=== PATIENT | male | born 1950 | race Caucasian/White ===

== ENCOUNTER 2017-11-21 09:46 | Inpatient (IN) ==
[2017-11-21] MEDS ORDERED: Chlorhexidine Gluconate 2% 1 Pack (2 Cloths) TOPICAL SCH (10:15)
[2017-11-21] MEDS ORDERED: Metoprolol Tartrate 25 MG Tablet PO SCH (10:15)
[2017-11-21] MEDS ORDERED: Sodium Chlor 0.9% Inj 73.07 ML, Ropivacaine 0.5% PF Inj 24.63 ML, Ketorolac Inj 30 MG, ... P-ARTICULR SCH ×5 (10:30)
[2017-11-21] MEDS ORDERED: Chlorhexidine 4% Topical 120 APPLIC/120 ML Bottle TOPICAL SCH (10:30)
[2017-11-21] MEDS ORDERED: Sodium Chlor 0.9% Inj 500 ML IV.SIG SCH (11:00)
[2017-11-21] MEDS ORDERED: Vancomycin Inj 1,000 MG in Sodium Chlor 0.9% Inj 250 ML IV.SIG SCH (11:00)
[2017-11-21] MEDS ORDERED: Bupivacaine PF 0.5% Inj 30 ML Vial ONE (11:37)
[2017-11-21] MEDS ORDERED: Neostigmine Inj 5 MG/5 ML Syringe IV.PUSH ONE (12:00)
[2017-11-21] MEDS ORDERED: Lidocaine PF 1% Inj 5 ML Syringe INFILTRATN ONE (12:00)
[2017-11-21] MEDS ORDERED: Phenylephrine/NS 1000 MCG/10ML Syringe IV.PUSH ONE (12:00)
[2017-11-21] MEDS ORDERED: Glycopyrrolate Inj 1 MG/5 ML Syringe IV.PUSH ONE (12:00)
[2017-11-21] MEDS ORDERED: ALPRAZolam 0.5 MG Tablet PO PRN (14:54)
[2017-11-21] MEDS ORDERED: Morphine Inj 4 MG/ML Vial IV.PUSH PRN (14:57)
[2017-11-21] MEDS ORDERED: Post-op Orders (for Pharmacy) OTHER STA (14:57)
[2017-11-21] MEDS ORDERED: Bisacodyl 10 MG Supp RECTAL PRN (14:57)
--- NOTE | 2017-11-21 15:03 | P.BOP ---
- Preoperative Diagnosis (1) Tricompartment osteoarthritis of right knee - Postoperative Diagnosis (1) Tricompartment osteoarthritis of right knee Date of procedure: 11/21/17 Procedure: R TKR Anesthesia: GETA, regional, local Surgeon: Aime Keith MD Environmental Epidemiologist: Alem Patricia Estimated blood loss (mL): 25 Tourniquet time (min): 57 Pathology: none sent Condition: stable Disposition: PACU
--- NOTE | 2017-11-21 15:05 | P.DCO ---
- Physical Therapy Physical Therapy: Gait training, Transfer training, bed to chair Knee: Total knee, Protocol: Right, Full weight bearing Canvas Knee Splint: When in bed with 2 pillows between thighs Right Lower Extremity Weight Bearing: Weight bearing as tolerated Left Lower Extremity Weight Bearing: Weight bearing as tolerated - Nursing RN: 3 days/week x 2 weeks Nursing: Dressing changes (clean with alcohol and apply dry sterile dressing ) Additional instructions: aspirin 81 mg bid x 4 weeks - Certification Need for Home Health services: I have seen patient Alex Lopez on 11/21/17. My clinical findings support the need for the requested home health care services because: Need for Home Health Services: Deconditioned with increased weakness Homebound Certification: I certify that my clinical findings support that this patient is homebound because: Homebound Certification: Unsteady gait/balance
[2017-11-21] MEDS ORDERED: Dextrose 50% in Water 50 ML Vial IV.PUSH PRN (15:13)
[2017-11-21] MEDS ORDERED: fentaNYL Citrate Inj 100 MCG/2 ML Ampul ONE (15:17)
--- NOTE | 2017-11-21 15:51 | P.CONIM ---
History of Present Illness Consult date: 11/21/17 Reason for Consult: Medical management Primary Care Provider: UNKNOWN History of Present Illness: The patient is a 67-year-old male with past medical history of CAD, CVA and diabetes who is presenting to the hospital for elective right knee replacement. The patient says he had arthritis ever since his working days and finally required knee surgery. He says at home he has been taking Tylenol with arthritis medication. He has been ambulating without a cane or a walker. He is status post total knee replacement on 11/21/2017. He tolerated the procedure well. He was seen in the PACU. He has endorsed some constipation recently. He denied any dysuria or fevers. He says he has not eaten all day. Discussed with nurse at the bedside. Review of Systems All other systems reviewed negative except as stated in HPI PMFSH - History History Provided By: Patient - Medical History Medical History: Medical History (Last Updated 11/21/17 @ 15:46 by Maximiliano Wilkes DO) Weems's palsy Brain bleed CVA (cerebral vascular accident) Heart murmur Arthritis Coronary artery disease Diabetes Family history of brain aneurysm Full dentures Heartburn High cholesterol Hypertension Joint pain Neck pain Panic attack Wears glasses - Surgical History Surgical History: Surgical History (Last Reviewed 11/21/17 @ 10:54 by Vanessa Avendano) History of removal of cyst History of tonsillectomy Hx of CABG - Family History Family History: Family History (Last Updated 11/21/17 @ 15:44 by Maximiliano Wilkes DO) Other CAD (coronary artery disease) - Tobacco History Second Hand Smoke Exposure: No Tobacco Use In Past 30 Days: No Smoking Status: Former smoker (He quit 10 years ago) - Alcohol History How Often Do You Have a Drink Containing Alcohol: Never - Substance Use History Substance History: No History of Abuse - Travel History Recent Travel in the [place] Within the Last 8 Weeks: No Recent Travel Out of the Country Within the Last 8 Weeks: No Medications and Allergies Active Medications: Active Medications Hydrocodone Bitart/Acetaminophen ([place] 7.5/325) 1 tab PO Q4H PRN PRN Reason: PAIN LESS THAN 5 ON SCALE Hydrocodone Bitart/Acetaminophen ([place] 7.5/325) 2 tab PO Q6H PRN PRN Reason: PAIN SCALE 5 TO 10 Al Hydroxide/Mg Hydroxide (Milk Of Magnesia Liq) 30 ml PO BID PRN PRN Reason: Mild Constipation Alprazolam (Xanax) 0.25 mg PO DAILY PRN PRN Reason: Panic Attack(S) Amlodipine Besylate (Norvasc) 10 mg PO DAILY [facility] Aspirin (Aspirin Chew) 81 mg PO BID [facility] Atorvastatin Calcium (Lipitor) 80 mg PO DAILY [facility] Bisacodyl (Dulcolax Supp) 10 mg RECTAL DAILY PRN PRN Reason: SEVERE CONSITIPATION Chlorhexidine Gluconate (Chlorhexidine 2% Cloth) 3 pack TOPICAL LOBSTERMAN [facility] Stop: 11/24/17 10:13 Last Admin: 11/21/17 10:10 Dose: 3 pack Chlorhexidine Gluconate (Hibiclens 4% Topical) 1 applicatio TOPICAL ONCE [facility] Stop: 11/25/17 10:29 Last Admin: 11/21/17 11:30 Dose: 1 applicatio Sodium Chloride 73.07 ml/Ropivacaine 24.63 ml/Ketorolac Tromethamine 30 mg/ Epinephrine HCl 0.5 mg/cloNIDine PF Inj 80 mcg 0 ml P-ARTICULR ONCE [facility] Stop: 11/21/17 17:00 Dextrose (D50w Vial) 50 ml IV.PUSH UNSCH PRN PRN Reason: PER HYPOGLYCEMIA PROTOCOL Doxepin HCl (Sinequan) 50 mg PO HS [facility] Famotidine (Pepcid) 20 mg PO BID [facility] Glucagon (Glucagon Inj) 1 mg OTHER PRN PRN PRN Reason: for Hypoglycemia Protocol Lactated Ringer's (Lr 1000 Ml Inj) 1,000 mls @ 30 mls/hr IV.SIG .Q24H [facility] Stop: 11/24/17 10:13 Last Admin: 11/21/17 10:15 Dose: 30 mls/hr Sodium Chloride (Ns Inj) 500 mls @ 30 mls/hr IV.SIG .Q10H [facility] Stop: 11/24/17 10:13 Cefazolin Sodium 2,000 mg/ (Sodium Chloride) 120 mls @ 240 mls/hr IV.SIG LOBSTERMAN [facility] Stop: 11/24/17 10:59 Vancomycin HCl 1,000 mg/ (Sodium Chloride) 250 mls @ 250 mls/hr IV.SIG LOBSTERMAN [facility] Stop: 11/24/17 10:18 Last Admin: 11/21/17 12:21 Dose: 250 mls/hr Cefazolin Sodium 1,000 mg/ (Sodium Chloride) 100 mls @ 200 mls/hr IV.SIG Q6H [facility] Stop: 11/22/17 07:29 Insulin Aspart (Novolog Insulin Correctional Sugar Inj) 0 unit SQ ACHS [facility]; Protocol Insulin Human Isoph/Insulin Regular (Novolin 70/30 Inj) 25 units SQ AC DINNER [facility] Insulin Human Isoph/Insulin Regular (Novolin 70/30 Inj) 30 units SQ DAILY [facility] Lactulose (Lactulose Liq) 30 ml PO DAILY PRN PRN Reason: SEVERE CONSITIPATION Losartan Potassium (Cozaar) 25 mg PO DAILY [facility] Metoprolol Tartrate (Lopressor) 25 mg PO LOBSTERMAN [facility] Stop: 11/24/17 10:13 Last Admin: 11/21/17 11:19 Dose: Not Given Metoprolol Tartrate (Lopressor) 50 mg PO BID [facility] Morphine Sulfate (Morphine Inj) 4 mg IV.PUSH Q3H PRN PRN Reason: BREAKTHROUGH PAIN Ondansetron HCl (Zofran Odt) 4 mg PO Q6H PRN PRN Reason: NAUSEA OR VOMITING Povidone Iodine (Betadine 5% Antisepsis Kit) 1 applicatio EACH NARE LOBSTERMAN [facility] Stop: 11/24/17 10:13 Last Admin: 11/21/17 10:30 Dose: 1 applicatio Senna/Docusate Sodium (Carmel-Colace) 1 tab PO BID [facility] Sennosides (Senokot) 17.2 mg PO BID PRN PRN Reason: Moderate Constipation Sodium Chloride (Ns Flush) 2 ml IV.FLUSH BID [facility] Sodium Chloride (Ns Flush) 2 ml IV.FLUSH PRN PRN PRN Reason: FLUSH AFTER USING IV ACCESS Allergies Allergy/AdvReac Type Severity Reaction Status Date / Time metformin Allergy Cramping Verified 11/21/17 10:47 of the Muscles Home Medications Medication Instructions Recorded Confirmed Type alprazolam 0.25 mg PO DAILY PRN 11/03/17 11/21/17 History amlodipine 10 mg PO DAILY 11/03/17 11/21/17 History aspirin [Aspirin Low Dose] 81 mg PO DAILY 11/03/17 11/21/17 History atorvastatin 80 mg PO DAILY 11/03/17 11/21/17 History doxepin 50 mg PO HS 11/03/17 11/21/17 History famotidine 20 mg PO BID 11/03/17 11/21/17 History insulin NPH and regular human 45 unit SUB-Q AC DINNER 11/03/17 11/21/17 History [Novolin 70/30 U-100 Insulin] insulin NPH and regular human 50 unit SUB-Q AC BREAKFAST 11/03/17 11/21/17 History [Novolin 70/30 U-100 Insulin] losartan 25 mg PO DAILY 11/03/17 11/21/17 History metoprolol tartrate 50 mg PO BID 11/03/17 11/21/17 History Exam Vital signs: Vital Signs 11/21/17 10:38 11/21/17 10:40 11/21/17 10:57 Temperature 97.6 F Pulse Rate 56 L 59 L Respiratory Rate 16 Blood Pressure 129/68 Pulse Oximetry 98 96 Intake & Output 11/20/17 11/21/17 11/21/17 18:59 06:59 18:59 Weight 88.6 kg Other: Weight On Admission 88.6 kg Narrative: General: NAD HEENT: NC, AT Pulmonary: CTAB Cardiac: RRR with harsh systolic murmur Abdominal: Soft, NT, ND Extremities: Right knee is bandaged, no edema in LLE Neuro: Left sided facial droop s/t [place] Palsy Results - Labs Labs: Laboratory Results - last 24 hr 11/21/17 11/21/17 11/21/17 10:22 10:37 15:25 POC Glucose 191 H 175 H Blood Type O Positive Blood Type Recheck Not needed Antibody Screen Negative MTS Gel Crossmatch See Detail Assessment and Plan - Plan Osteoarthritis S/p right knee replacement 11/21. -weightbearing, wound care and anticoagulation per surgery. -pain control with a bowel regimen. -rehab efforts. -incentive spirometry. -follow CBC. DM2 On insulin as an outpt. -reduce home insulin dose and place on a sliding scale. Renal insufficiency Labs from earlier in October suggested renal insufficiency. -check BMP in AM and avoid nephrotoxins. PPx: Per surgery
[2017-11-21] MEDS ORDERED: *Enalaprilat Inj 1.25 MG/ML Vial IV.PUSH ONE (16:04)
--- NOTE | 2017-11-21 16:04 | XR ---
EXAM DATE: 11/21/2017 3:54 PM EDT AGE/SEX: 67 years / Male INDICATIONS: Post op right knee. CLINICAL DATA: This is the patient's initial encounter. Patient reports that signs and symptoms have been present for 1 day and indicates a pain score of Nonresponsive. MEDICAL/SURGICAL HISTORY: . Hypertension. 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 None. COMPARISON: No prior exams available for comparison. FINDINGS: AP and lateral views of the knee following arthroplasty reveals a prosthesis in anatomic alignment. F racture is not appreciated. Surgical drain is evident. CONCLUSION: Status post total knee arthroplasty. Uday Sherman MD FACR Electronically signed by: Uday Sherman MD 11/21/2017 4:03 PM EDT
[2017-11-21] MEDS: Insulin NovoLOG Aspart Correctional Sugar Inj SQ SCH (16:38)
--- NOTE | 2017-11-21 16:46 | MP ---
cc: Aime Keith MD, Jose R MD DATE OF OPERATION: 11/21/2017 PREOPERATIVE DIAGNOSES: 1. Right knee severe tricompartment osteoarthritis. 2. Genu valgus deformity. POSTOPERATIVE DIAGNOSES: 1. Right knee severe tricompartment osteoarthritis. 2. Genu valgus deformity. PROCEDURE PERFORMED: Right total knee arthroplasty - cemented [employer]. SURGEON: Aime Keith MD. MANAGER ASSESSMENT: Alem Patricia PA-C. ANESTHESIA: General, adductor canal regional block, intraarticular block. TOURNIQUET TIME: 57 minutes at 250 mmHg. COMPLICATIONS: None. PLAN: Activities per order. NOTE: My assistant head cashier Alem Patricia PA-C was present for the entire surgical case. She was medically necessary for the entire case, given the complexity of the case, and to facilitate the performance of the procedure. The HEAD OF ICT at the back table was not of the skill set for this case to manipulate the instruments, e.g. multiple tipped types of soft tissue retractors, trial implants, and permanent implants including bone cement. PROCEDURE IN DETAIL: The patient was brought in the operating room and had satisfactory anesthesia by Dr. Sudhir Castrejon, department of anesthesia. The right lower extremity was prepped and draped in the usual sterile manner. The extremity was exsanguinated by elevation and tourniquet inflated to 250 mmHg. A small anterior medial exposure to the knee was made. All bleeders were coagulated. Dissection carried through the skin and soft tissue. A paramedian capsulotomy was performed. Knee was found to have severe osteoarthritis involving all 3 compartments. The patient also had a mild to moderate degree of synovitis involving the suprapatellar pouch. The remaining portions of medial and lateral menisci were removed. Anterior cruciate ligament was removed. Posterior cruciate ligament was preserved. Using the [employer] total knee arthroplasty system, IM guide was used with distal femur to accept a 62.5-mm femoral component. Extramedullary guide was used for the tibia to accept a 75-mm tibial component. The knee was appropriately balanced in both flexion and extension. Ten millimeters were found to be stable and satisfactory in both flexion and extension. Undersurface of the patella was removed to accept a 31-mm 3-pronged patellar prosthesis. All trial components were removed. The preparation for cementing was made. First, the knee was anesthetized with 100 mL of local anesthesia provided by department of pharmacy. The 2 packages of high viscosity bone cement by [employer] were utilized. First, the tibial component was cemented, which was a 75-mm tibial component, followed by a 62.5-mm femoral component with a 10 x 75-mm tibial polyethylene plastic. The patellar prosthesis, 3-prong, was cemented at 31. Bone cement allowed to harden for 12 minutes. All excess bone cement was removed. A 10 by a 75-mm lipped tibial prosthesis was inserted onto the tibial tray. It was appropriately locked to the tray with the clipping mechanism. Tourniquet was deflated. The patella was noted to group well within the patellofemoral compartment with the "no thumbs technique." The knee was irrigated with 4000 mL of sterile saline antibiotic solution. The wound itself was dry. It was closed in a routine manner over two 1/8-inch Hemovac drains. The lateral retinaculum release was not necessary. The capsule and extensor mechanisms were repaired using multiple #3 Dacron sutures. Subcutaneous tissue closed in layers of 0 Vicryl and 2-0 Vicryl. Skin was approximated with skin rhonda. Sterile dressings were applied. The patient tolerated the procedure well and brought to the recovery room in stable and satisfactory condition. MD ROBER Bassett/marifer , 02:50 PM , 03:06 PM
[2017-11-21] MEDS: Famotidine 20 MG Tablet PO SCH (21:35)
[2017-11-21] MEDS: Metoprolol Tartrate 50 MG Tablet PO SCH (21:35)
[2017-11-21] MEDS: Senna/Docusate Sodium 8.6/50 MG Tablet PO SCH (21:35)
[2017-11-22] MEDS: Insulin NovoLOG Aspart Correctional Sugar Inj SQ SCH ×3 (01:10→12:38)
[2017-11-22 06:31] LABS: Hematocrit 33.5 % (39.0-51.0); Hemoglobin 11.2 gm/dL (13.0-17.0)
--- NOTE | 2017-11-22 07:01 | P.PNOP ---
Subjective Interval history: POD#1 R TKR Patient wishes to go home today; No SOB;no chest pain Patient is comfortable Physical Exam Vital signs: Vital Signs 11/21/17 10:38 11/21/17 10:40 11/21/17 10:57 Temperature 97.6 F Pulse Rate 56 L 59 L Respiratory Rate 16 Blood Pressure 129/68 Pulse Oximetry 98 96 11/21/17 14:58 11/21/17 15:00 11/21/17 15:15 Temperature 97.2 F L Pulse Rate 60 60 56 L Respiratory Rate 16 16 16 Blood Pressure 155/74 H 157/70 H 150/70 H Pulse Oximetry 100 99 99 11/21/17 15:30 11/21/17 15:45 11/21/17 16:00 Temperature Pulse Rate 56 L 60 58 L Respiratory Rate 16 16 16 Blood Pressure 146/65 H 161/71 H 178/73 H Pulse Oximetry 98 99 98 11/21/17 16:30 11/21/17 17:00 11/21/17 18:00 Temperature Pulse Rate 60 64 64 Respiratory Rate 16 16 16 Blood Pressure 139/65 120/58 L 137/65 Pulse Oximetry 98 98 96 11/21/17 22:00 11/22/17 00:00 Temperature 97.6 F 97.8 F Pulse Rate 76 76 Respiratory Rate 18 18 Blood Pressure 115/57 L 129/57 L Pulse Oximetry 95 94 L Intake & Output 11/21/17 11/21/17 11/22/17 06:59 18:59 06:59 Intake Total 1370 / 1370 200 / 200 Output Total 205 / 205 300 / 300 Balance 1165 / 1165 -100 / -100 Weight 88.6 kg Intake: IV 370 / 370 200 / 200 Vancomycin Inj 1,000 MG In NS 250 / 250 Inj 250 ML @ 250 mls/hr IV.SIG SOFT WATER MECHANIC [facility] Rx#:[id number] Ancef Inj 1,000 MG In NS Inj 200 / 200 100 ML @ 200 mls/hr IV.SIG Q6H [facility] Rx#:[id number] Ancef Inj 2,000 MG In NS Inj 120 / 120 100 ML @ 240 mls/hr IV.SIG SOFT WATER MECHANIC [facility] Rx#:[id number] Anesthesia Amount 1000 / 1000 Output: Urine 300 / 300 Estimated Blood Loss 25 / 25 Wound Drainage 180 / 180 # 1 Right Knee Hemovac 180 / 180 Other: Weight On Admission 88.6 kg - Routine HEENT Exam Comments: N/V intact Dressings dry Negative franklin's;no calf tenderness Results - Labs CBC & Chem 7: 11/22/17 05:09 Laboratory Results - last 24 hr 11/21/17 11/21/17 11/21/17 10:22 10:37 15:25 Hgb Hct POC Glucose 191 H 175 H Blood Type O Positive Blood Type Recheck Not needed Antibody Screen Negative MTS Gel Crossmatch See Detail 11/21/17 11/22/17 11/22/17 18:29 00:37 05:09 Hgb 11.2 L Hct 33.5 L POC Glucose 193 H 149 H Blood Type Blood Type Recheck Antibody Screen MTS Gel Crossmatch - Imaging Impressions Knee X-Ray 11/21/17 14:56 CONCLUSION: Status post total knee arthroplasty. Uday Sherman MD FACR Assessment and Plan - Ortho Post Op Day # 1 - Problem List (1) Tricompartment osteoarthritis of right knee Code(s): M17.11 - Unilateral primary osteoarthritis, right knee Status: Acute - Assessment and Plan Ortho stable HHC RN/PT Aspirin 81mg BID x 4 weeks,TEDS for DVT/PE prophylaxsis Discharge home today
[2017-11-22] MEDS: Metoprolol Tartrate 50 MG Tablet PO SCH (08:31)
[2017-11-22] MEDS: Famotidine 20 MG Tablet PO SCH (08:32)
[2017-11-22] MEDS: Senna/Docusate Sodium 8.6/50 MG Tablet PO SCH (08:32)
[2017-11-22] MEDS ORDERED: amLODIPine 10 MG Tablet PO SCH (09:00)
--- NOTE | 2017-11-22 09:24 | P.PN ---
Subjective Interval history: Patient is seen sitting up in bed eating breakfast. His is present. He tells me that he is feeling good and that his knee pain is well controlled. Denies any chest pain or shortness of breath. No nausea vomiting or diarrhea. He is tolerating his meals. He has been urinating normally. Has been experiencing some gas but no significant distention. Physical Exam Vital signs: Vital Signs 11/21/17 10:38 11/21/17 10:40 11/21/17 10:57 Temperature 97.6 F Pulse Rate 56 L 59 L Respiratory Rate 16 Blood Pressure 129/68 Pulse Oximetry 98 96 11/21/17 14:58 11/21/17 15:00 11/21/17 15:15 Temperature 97.2 F L Pulse Rate 60 60 56 L Respiratory Rate 16 16 16 Blood Pressure 155/74 H 157/70 H 150/70 H Pulse Oximetry 100 99 99 11/21/17 15:30 11/21/17 15:45 11/21/17 16:00 Temperature Pulse Rate 56 L 60 58 L Respiratory Rate 16 16 16 Blood Pressure 146/65 H 161/71 H 178/73 H Pulse Oximetry 98 99 98 11/21/17 16:30 11/21/17 17:00 11/21/17 18:00 Temperature Pulse Rate 60 64 64 Respiratory Rate 16 16 16 Blood Pressure 139/65 120/58 L 137/65 Pulse Oximetry 98 98 96 11/21/17 22:00 11/22/17 00:00 11/22/17 04:00 Temperature 97.6 F 97.8 F 98.2 F Pulse Rate 76 76 95 H Respiratory Rate 18 18 18 Blood Pressure 115/57 L 129/57 L 158/74 H Pulse Oximetry 95 94 L 95 Intake & Output 11/21/17 11/22/17 11/22/17 18:59 06:59 18:59 Intake Total 1370 / 1370 1450 / 1450 100 / 100 Output Total 205 / 205 1170 / 1170 Balance 1165 / 1165 280 / 280 100 / 100 Weight 88.6 kg 98.8 kg Intake: IV 370 / 370 200 / 200 100 / 100 Vancomycin Inj 1,000 MG In NS 250 / 250 Inj 250 ML @ 250 mls/hr IV.SIG CONTROL CENTER OPERATOR [facility] Rx#:[id number] Ancef Inj 1,000 MG In NS Inj 200 / 200 100 / 100 100 ML @ 200 mls/hr IV.SIG Q6H [facility] Rx#:[id number] Ancef Inj 2,000 MG In NS Inj 120 / 120 100 ML @ 240 mls/hr IV.SIG CONTROL CENTER OPERATOR [facility] Rx#:[id number] Oral 1250 / 1250 Anesthesia Amount 1000 / 1000 Output: Urine 1170 / 1170 Estimated Blood Loss 25 / 25 Wound Drainage 180 / 180 # 1 Right Knee Hemovac 180 / 180 Other: Weight On Admission 88.6 kg Narrative: GENERAL: Well-nourished, well-developed adult male in no obvious distress. SKIN: Warm and dry. HEAD: Atraumatic. Normocephalic. CARDIOVASCULAR: Regular rate and rhythm. RESPIRATORY: No accessory muscle use. Clear to auscultation. Breath sounds equal bilaterally. GASTROINTESTINAL: Abdomen soft, non-tender, non-distended. Positive bowel sounds. MUSCULOSKELETAL: Extremities without clubbing, cyanosis, or edema. No obvious deformities. Right knee in canvas brace. Right foot and leg well-perfused. NEUROLOGICAL: Awake and alert. No obvious cranial nerve deficits. Motor grossly within normal limits. Normal speech. Results - Labs CBC & Chem 7: 11/22/17 05:09 Laboratory Results - last 24 hr 11/21/17 11/21/17 11/21/17 10:22 10:37 15:25 Hgb Hct POC Glucose 191 H 175 H Blood Type O Positive Blood Type Recheck Not needed Antibody Screen Negative MTS Gel Crossmatch See Detail 11/21/17 11/22/17 11/22/17 18:29 00:37 05:09 Hgb 11.2 L Hct 33.5 L POC Glucose 193 H 149 H Blood Type Blood Type Recheck Antibody Screen MTS Gel Crossmatch 11/22/17 08:35 Hgb Hct POC Glucose 177 H Blood Type Blood Type Recheck Antibody Screen MTS Gel Crossmatch - Imaging Impressions Knee X-Ray 11/21/17 14:56 CONCLUSION: Status post total knee arthroplasty. Uday Sherman MD FACR Assessment and Plan - Plan Osteoarthritis S/p right knee replacement 11/21. -weightbearing, wound care and anticoagulation per surgery. -pain control with a bowel regimen. -rehab efforts. -incentive spirometry. -follow CBC. DM2 On insulin as an outpt. -reduce home insulin dose and place on a sliding scale. Renal insufficiency Labs from earlier in October suggested renal insufficiency. -check BMP in AM and avoid nephrotoxins. PPx: Per surgery Discussed with: Patient and nurse. Discharge planning: DC per orthopedics. Patient appears medically stable at this time.
== END 2017-11-22 14:28 | disposition home health service (06) ==
LOC: HSDI 09:46 → N06 20:16
PROVIDERS: ADMIT Orthopaedic Surgery Orthopaedic Surgery of the Spine; ATTEND Orthopaedic Surgery Orthopaedic Surgery of the Spine